=== PATIENT | male | born 1995 | race Caucasian/White ===

== ENCOUNTER 2016-09-27 04:09 | Emergency (ER) | payer BC ==
--- NOTE | ~2016-09-27 | CT2 ---
[facility] A Service of [facility] RADIOLOGY TEXT RESULTS PATIENT: CHRISITNA FRAIRE LOCATION: [facility] : [birth year] UNIT #: [id number] AGE: [address]: Moe Hatfield MD SEX: M ORDER DR: [id number] [facility]. [place], [place] [address] [id number] E MR#: [id number] Acc #: [id number] NAME: CHRISTINA FRAIRE : 1995 SEX: M STUDY DATE/TIME: 09/27/2016 8:56 UNIT: [facility] ROOM: STUDY DESCRIPTION: CT Abd and Pelv W Cont Attending Physician: Moe Hatfield M.D. Ordering Physician: Moe Hatfield M.D. Primary Care Physician: Primary Care Physician No MEDICAL IMAGING REPORT This report is preliminary unless electronic signature is present EXAM CT abdomen and pelvis with contrast INDICATION Weakness, vomiting and abdominal cramping this morning. TECHNIQUE CT of the abdomen and pelvis was performed with IV contrast. This CT exam was performed with one or more of the following radiation dose reduction techniques: automatic exposure control, adjustment of mA and/or kV according to patient size, and iterative reconstruction. COMPARISON No comparisons. FINDINGS Lung bases are clear. Liver, gallbladder, spleen unremarkable. Tiny cyst lower pole left kidney. The right kidney unremarkable. Adrenal glands and pancreas are unremarkable. There are no dilated loops of bowel. PELVIS: There is no free fluid. There is some enhancement of the distal ileal bowel loops which may reflect enteritis. Correlate clinically. There is scant free fluid in the pelvis. No evidence for abscess. No evidence for bowel obstruction. The colon is unremarkable. The appendix is normal. Bone windows are unremarkable. IMPRESSION There is mucosal enhancement involving multiple loops of distal small bowel. This may reflect enteritis. There is no significant inflammatory stranding or evidence of any abscess. There is no evidence for bowel obstruction. [facility] A Service of [facility] RADIOLOGY TEXT RESULTS PATIENT: CHRISTINA FRAIRE LOCATION: [facility] : [birth year] UNIT #: [id number] AGE: [address]: Moe Hatfield MD SEX: M ORDER DR: Dictated by... Silvestre Rock M.D. THIS IS AN ELECTRONICALLY VERIFIED REPORT Silvestre Rock M.D. at 09/28/2016 12:35 PM Jess TD: 09/27/2016 09:59 JOB #: [id number] MEDICAL IMAGING REPORT Page 1 of 1 COPY
--- NOTE | ~2016-09-27 | EKG ---
PATIENT: CHRISTINA FRAIRE UNIT #: [id number] Ventricular Rate: 86 BPM Atrial Rate: 86 BPM P-R Interval: 132 ms QRS Duration: 92 ms Q-T Interval: 362 ms QTC Calculation(Bezet): 433 ms P [employer]: 73 degrees Calculated R [employer]: 77 degrees Calculated T [employer]: 41 degrees Diagnosis Line: Normal sinus rhythm Diagnosis Line: Normal ECG Diagnosis Line: No previous ECGs available Diagnosis Line: Confirmed by CRISTIN CARLIN MD ([id number]) on Diagnosis Line: 09/28/2016 9:38:53 PM INTERPRETING MD: TESFAYE VEGA
[2016-09-27 06:36] LABS: BASOPHIL% 0.1 % (0-2.5); EOSINOPHIL% 0.2 % (0.0-7.0); HEMATOCRIT 43.5 % (38.0-50.0); HEMOGLOBIN 14.6 gm/dL (13.0-16.0); LYMPHOCYTE# 0.3 X10e3 (1.0-3.5); MEAN CELL VOLUME 91.6 FL (83-96); MEAN CORPUSCULAR HEMOGLOBIN 30.7 PG (28-34); MEAN CORPUSCULAR HGB CONC 33.6 g/dL (30-36); MEAN PLATELET VOLUME 9.3 FL (6.5-11.5); MONOCYTE# 0.8 X10e3 (0-1.0); MONOCYTE% 7.8 % (3.0-12.0); NEUTROPHIL% 88.9 % (40-75); PLATELET COUNT 204 X10e3 (140-420); RED BLOOD COUNT 4.75 X10e (3.90-5.60); RED CELL DISTRIBUTION WIDTH 12.6 % (11.0-15.5); WHITE BLOOD COUNT 10.1 X10e3 (4.0-10.5)
[2016-09-27 06:37] LABS: DIFF IND NO
[2016-09-27 07:15] LABS: ALBUMIN SERUM 4.4 g/dL (3.5-5.0); BILIRUBIN, DIRECT 0.1 mg/dL (0.0-0.2); BILIRUBIN,INDIRECT 0.6 mg/dL (0.0-0.9); BILIRUBIN,TOTAL 0.7 mg/dL (0.2-2.0); BUN/CREATININE RATIO 17.77; CALCIUM SERUM 8.7 mg/dL (8.4-10.2); CREATININE SERUM 0.9 mg/dL (0.6-1.4); POTASSIUM 3.6 mmol/L (3.5-5.1); PROTEIN TOTAL SERUM 7.5 g/dL (6.0-8.3)
[2016-09-27 07:50] LABS: URINE SOURCE CLEAN CATCH
[2016-09-27 07:56] LABS: URINE APPEARANCE CLEAR; URINE BILIRUBIN NEG (NEG); URINE BLOOD NEG (NEG); URINE COLOR YELLOW; URINE GLUCOSE NEG (NEG); URINE KETONE TRACE (NEG); URINE LEUKOCYTE ESTERASE NEG (NEG); URINE NITRATE NEG (NEG); URINE PH 5.5 (5-8); URINE PROTEIN NEG (NEG); URINE SPECIFIC GRAVITY 1.025 (1.003-1.035)
[2016-09-27 07:58] LABS: CULTURE INDICATED? NO
== END 2016-09-27 10:57 | disposition home or self-care (01) ==
LOC: CED 04:09
PROVIDERS: Emergency Medicine
DX: R10.84 Generalized abdominal pain (principal)
CPT/HCPCS: 36415; 74177; 80048; 80076; 81003; 85025; 87651; 93005; 96361; 96374; 96375; 99284; J1885; J2270; J2405; Q9967

== ENCOUNTER 2016-10-28 17:50 | Emergency (ER) | payer BC ==
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
== END 2016-10-28 20:00 | disposition home or self-care (01) ==
LOC: CED 17:50 → CFTX 17:50
DX: S39.012A Strain of muscle, fascia and tendon of lower back, initial encounter (principal); S29.012A Strain of muscle and tendon of back wall of thorax, initial encounter; V49.00XA Driver injured in collision with unspecified motor vehicles in nontraffic accident, initial encounter
CPT/HCPCS: 72072; 72100; 99284

== ENCOUNTER 2016-12-18 15:00 | Emergency (ER) | payer BC ==
[~2016-12-18] VITALS: Ht 177.8 cm; Wt 78.9 kg
--- NOTE | ~2016-12-18 | CR72 ---
[facility] A Service of [facility] RADIOLOGY TEXT RESULTS PATIENT: CHRISTINA FRAIRE LOCATION: [facility] : [birth year] UNIT #: [id number] AGE: [address]: aTrik Lopez MD SEX: M ORDER DR: [id number] [address] [address] [id number] E MR#: [id number] Acc #: [id number] NAME: CHRISTINA FRAIRE : 1995 SEX: M STUDY DATE/TIME: 12/18/2016 15:39 UNIT: [facility] ROOM: STUDY DESCRIPTION: CR Chest Single View Portable Ordering Physician: [facility] MEDICAL IMAGING REPORT This report is preliminary unless electronic signature is present EXAM Chest x-ray portable HISTORY Shortness of air. Cough. Congestion. Symptoms for 3 days. TECHNIQUE Single portable view of the chest timed 15:39 on 12/18/2016 reviewed. COMPARISON STUDIES No previous. FINDINGS Cardiac silhouette size is normal. No acute-appearing parenchymal infiltrate or acute congestive failure. No pleural effusion or pneumothorax. IMPRESSION No active disease. Dictated by... Susanne Draper M.D. THIS IS AN ELECTRONICALLY VERIFIED REPORT Susanne Draper M.D. at 12/21/2016 1:56 PM SAC/pcl TD: 12/18/2016 21:54 JOB #: [id number] [facility] A Service of [facility] RADIOLOGY TEXT RESULTS PATIENT: CHRISTINA FRAIRE LOCATION: [facility] : [birth year] UNIT #: [id number] AGE: [address]: Tarik Lopez MD SEX: M ORDER DR: MEDICAL IMAGING REPORT Page 1 of 1 COPY
== END 2016-12-18 19:00 | disposition home or self-care (01) ==
LOC: CED 15:00
DX: J20.9 Acute bronchitis, unspecified (principal)
CPT/HCPCS: 71010; 99284